=== PATIENT | female | born 1965 | race Caucasian/White ===

== ENCOUNTER → 2024-06-02 | Outpatient (CLI) | payer BC, SELFPAY ==
--- NOTE | 2024-06-02 10:14 | XR_ITS ---
Examination: Esophagram standard Fluoroscopy 25 spot fluoroscopic films of the esophagus Upright PA chest single view Upright soft tissue lateral neck single view Exam date and time: June 02, 2024 at 1004 hours INDICATIONS: Difficulty swallowing beginning 2 years ago. TECHNIQUE AND FINDINGS: Upright PA chest demonstrates normal heart size, lungs are clear Moderate degenerative disc disease C5-C6 C6-C7 on the lateral soft tissue neck Epiglottis is not thickened Primary peristaltic esophageal waves No esophageal ulceration Moderate intermittent gastroesophageal reflux Moderate esophageal hernia No stricture the gastroesophageal junction Fluoroscopy 0.17 minute IMPRESSION: Moderate intermittent gastroesophageal reflux Moderate esophageal hernia No stricture at the gastroesophageal junction
== END | disposition home or self-care (01) ==
PROVIDERS: PCP Family Medicine; Referring Provider Family Medicine; Visit Provider Family Medicine
DX: K21.9 Gastro-esophageal reflux disease without esophagitis (principal); K44.9 Diaphragmatic hernia without obstruction or gangrene
CPT/HCPCS: 74220

== ENCOUNTER → 2024-09-08 | Outpatient (CLI) | payer BC, SELFPAY ==
[2024-09-08 12:05] LABS: Thyroid Stimulating Hormone 1.47 uIU/mL (0.55-4.78)
[2024-09-08 12:12] LABS: Follicle Stimulating Hormone 69.81 mIU/mL (See Note)
[2024-09-22 06:43] LABS: Estradiol, Ultrasensitive* 20 pg/mL; Luteinizing Hormone* 35.8 mIU/mL; Testosterone,Total* 9 ng/dL (2-45)
== END | disposition home or self-care (01) ==
LOC: COPL 10:18
PROVIDERS: PCP Family Medicine; Referring Provider Family Medicine; Visit Provider Family Medicine
DX: F52.1 Sexual aversion disorder (principal)
CPT/HCPCS: 36415; 82670; 83001; 83002; 84403; 84443

== ENCOUNTER → 2025-02-11 | Outpatient (CLI) | payer BC, SELFPAY ==
--- NOTE | 2025-02-11 15:16 | XR_ITS ---
Examination: Foot, left, 3 views Technique: AP, oblique, lateral views foot, 3 views Date and time of exam: February 11, 2025 1522 hours INDICATIONS: Left foot pain months FINDINGS: Mild to moderate osteoarthritis first metatarsophalangeal joint No fracture or dislocation No erosive arthritis 6 mm plantar bony calcaneal spur IMPRESSION: Mild to moderate osteoarthritis first metatarsophalangeal joint 6 mm plantar bony calcaneal spur
== END | disposition home or self-care (01) ==
PROVIDERS: PCP Family Medicine; Referring Provider Family Medicine; Visit Provider Family Medicine
DX: M19.072 Primary osteoarthritis, left ankle and foot (principal); M77.32 Calcaneal spur, left foot
CPT/HCPCS: 73630

== ENCOUNTER → 2025-03-26 | Outpatient (CLI) | payer BC, SELFPAY ==
--- NOTE | 2025-03-26 08:00 | XR_ITS ---
Examination: Screening digital mammography, bilateral Computer aided detection 3-D breast Tomosynthesis, bilateral Date and time of exam: March 26, 2025, 0751 hours, compared to mammograms dating to 01/20/2018 Indication: Screening Technique: Nonmagnified MLO, CC views of the breasts to been obtained, reconstructed from 3-D Tomosynthesis images. R2 computer aided detection program utilized for evaluation of suspicious masses and/or abnormal calcifications. 3-D Tomosynthesis images obtained. Findings: The breasts are heterogeneously dense, which may obscure small masses 12 mm nodule upper outer right breast indistinct margins Benign calcifications Implants appear intact Impression: BI-RADS Category 0: Incomplete: Need additional imaging evaluation Recommend follow-up spot tomographic views of 12 mm nodule upper outer right breast as well as bilateral breast sonography to complete the work-up.
== END | disposition home or self-care (01) ==
LOC: CDIM 07:43
PROVIDERS: Referring Provider Family Medicine; Visit Provider Family Medicine
DX: Z12.31 Encounter for screening mammogram for malignant neoplasm of breast (principal); N63.11 Unspecified lump in the right breast, upper outer quadrant; R92.8 Other abnormal and inconclusive findings on diagnostic imaging of breast
CPT/HCPCS: 77063; 77067